=== PATIENT | female | born 1955 | race Caucasian/White ===

== ENCOUNTER 2022-09-29 06:22 | Observation (INO) | payer BC ==
[2022-09-24 13:36] LABS: Hematocrit 42.6 % (36.0-45.0); MCV 86.8 fL (80-100)
[2022-09-24 13:37] LABS: Absolute Lymphocytes (CBC) 1.4 K/uL (0.7-4.9); Lymphocytes % 26.7 % (15.3-44.8); MPV 8.3 fL (7.6-11.3)
[2022-09-24 13:37] LABS: Specific Gravity 1.009 (1.005-1.030); Urine Bilirubin NEGATIVE (Negative); Urine Blood Negative (Negative); Urine Clarity Clear (Clear); Urine Color Colorless (Yellow); Urine Glucose NEGATIVE (Negative); Urine Protein NEGATIVE (Negative); Urine Urobilinogen Normal (Normal); Urine pH 5.5 (5.0-7.0)
[2022-09-24 13:44] LABS: Protime INR 1.01
[2022-09-24 13:48] LABS: Potassium 3.7 mmol/L (3.5-5.1)
[2022-09-28 14:31] LABS: SARS-CoV-2 Antigen Rapid Res Negative (Negative)
[2022-09-29] MEDS ORDERED: Ringers Lactate 1,000 ML IV ONE ×3 (07:00→12:09)
[2022-09-29] MEDS ORDERED: SCOPOLAMINE HYDROBROMIDE PATCH TD ONE (07:00)
[2022-09-29] MEDS ORDERED: CEFAZOLIN SODIUM 2 GM/VIAL ONE (07:00)
[2022-09-29] MEDS ORDERED: FENTANYL CITR 250 MCG/5 ML ONE (07:03)
[2022-09-29] MEDS ORDERED: dexAMETHasone 10 MG/ML VIAL ONE (07:03)
[2022-09-29] MEDS ORDERED: MIDAZOLAM HCL 2 MG/2 ML INJ ONE (07:03)
[2022-09-29] MEDS ORDERED: KETAMINE HCL 500 MG/5 ML VIAL ONE (07:03)
[2022-09-29] MEDS ORDERED: propofoL 200 MG/20 ML VIAL IV ONE (07:03)
[2022-09-29] MEDS ORDERED: NS 0.9% VIAL 20 ML ONE (07:03)
[2022-09-29] MEDS ORDERED: ROCURONIUM 50 MG/5 ML VIAL IV ONE (07:03)
[2022-09-29] MEDS ORDERED: ONDANSETRON 4 MG/2 ML VIAL ONE (07:04)
[2022-09-29] MEDS ORDERED: LIDOCAINE 2% MPF 5 ML VIAL ONE (07:04)
[2022-09-29] MEDS ORDERED: CEFAZOLIN SODIUM 1 GM/VIAL ONE ×3 (07:23→13:21)
[2022-09-29] MEDS ORDERED: NA CHLORIDE 0.9% 100 ML ONE (07:24)
[2022-09-29] MEDS ORDERED: GLYCOPYRROLATE 0.2 MG/ML SYR ONE (08:28)
[2022-09-29] MEDS: VASOPRESSIN 20 UNIT/ML VIAL ONE ×2 (09:10→12:32)
[2022-09-29] MEDS ORDERED: EPHEDRINE SULF 50 MG/ML VIAL ONE (13:25)
[2022-09-29] MEDS ORDERED: FENTANYL CITR 100 MCG/2 ML ONE (13:40)
[2022-09-29] MEDS ORDERED: IBUPROFEN 200 MG TAB PO PRN (14:33)
[2022-09-29] MEDS ORDERED: ONDANSETRON 4 MG/2 ML VIAL IV PRN (14:33)
[2022-09-29] MEDS ORDERED: MORPHINE 2 MG/ML SYR IV PRN (14:33)
[2022-09-29] MEDS ORDERED: ACETAMINOPHEN 500 MG TAB PO PRN (14:33)
[2022-09-29] MEDS ORDERED: HYDROCODONE/APAP 5/325 MG TAB PO PRN (14:33)
--- NOTE | 2022-09-29 14:40 | P.BOP ---
Preoperative diagnosis: PMB, Stage 2 uterovaginal prolapse, RANDY Postoperative diagnosis: same, small bowel and large bowel adhesions, end ometriosis Primary procedure: TLH BSO, sacral colpopexy, posterior repair, perineorrhaphy Secondary procedure: lysis of bowel adhesions, TVT-O cystoscopy [employer] Consultant: Consuelo Arteaga Estimated blood loss: 50 Specimen: uterus tubes ovaries Findings: 0/0/-1/5/mod/7/0/0/-3, small bowel RLQ adhesions+sigmoid Anesthesia: General Complications: None Drain(s): Urinary catheter Implants: Upsylon, TVT-O Transferred to: Recovery Room Condition: Good
[2022-09-29] MEDS ORDERED: Ringers Lactate 1,000 ML IV SCH (15:00)
--- OUTSIDE RECORDS SUMMARY | 2022-09-29 15:17 | XMS REPORT | Continuity of Care Document ---
:1955 Author Organization [facility] t Address [address] [place] [address] Care Team Providers Name Role Phone YADIRA BARTHOLOMEW Primary Care Physician Unavailable [place] BARTHOLOMEW Attending Clinician Unavailable YADIRA BARTHOLOMEW Attending Clinician Unavailable Yadira Bartholomew Attending Clinician Doctor Unassigned, [place] Attending Clinician Unavailable Kendrick Hong Attending Clinician Unavailable Cornell Zavala DO Attending Clinician 1, [facility] Attending Clinician Unavailable Donnell Stewart MD Attending Clinician Jeremy Morin Attending Clinician YADIRA BARTHOLOMEW Admitting Clinician Unavailable Payers Payer Name Policy Type Policy Number Effective Date Expiration Date S [facility] - [id number] 2021 00:00:00 OUT OF STATE Problems Condition Condition Condition Status Onset Resolution Last Treating Co mments Source Name Details Category Date Date Treatment Clinician Date Adhesive Adhesive Disease Active Unive rs capsulitis capsulitis 02-27 it y of of left of left 00:00: [place] shoulder shoulder 00 Medica l Branch Allergies, Adverse Reactions, Alerts Allergy Allergy Status Severity Reaction(s) Onset Inactive Treating Comm ents Source Name Type Date Date Clinician No Known DA Active U 2020-08 [facility] Drug 2-16 Allergie 00:00: s 00 NO KNOWN Drug Active Univers ALLERGIE Class ity of S [facility] Social History Social Habit Start Date Stop Date Quantity Comments Source Exposure to Not sure University of SARS-CoV-2 [facility] (event) Branch Alcohol intake 2019-05-24 2019-05-24 Current University of 00:00:00 00:00:00 non-drinker of [facility] alcohol (finding) [place] Tobacco use and 2019-01-27 2019-01-27 Smokeless tobacco Un iversity of exposure 00:00:00 00:00:00 non-user [facility] Sex [birth year] Universit y of 00:00:00 00:00:00 [facility] Smoking Status Start Date Stop Date Source Never smoked tobacco [facility] Medications Ordered Filled Start Stop Current Ordering Indication Dosage Frequency Signature Comments Components Source Medication Medication Date Date Medication? Clinician (SIG) Name Name DICLOFENAC Yes [id number] TAKE 1 U nivers 75 mg EC 9-25 TABLET BY ity of tablet 00:00: MOUTH 00 TWICE A Medical DAY WITH Branch MEALS DICLOFENAC 2019-0 Yes [id number] TAKE 1 U nivers 75 mg EC 9-25 TABLET BY ity of tablet 00:00: MOUTH 00 TWICE A Medical DAY WITH Branch MEALS DICLOFENAC 2019-0 Yes [id number] TAKE 1 U nivers 75 mg EC 9-25 TABLET BY ity of tablet 00:00: MOUTH 00 TWICE A Medical DAY WITH Branch MEALS DICLOFENAC 2019-0 Yes [id number] TAKE 1 U nivers 75 mg EC 9-25 TABLET BY ity of tablet 00:00: MOUTH 00 TWICE A Medical DAY WITH Branch MEALS DICLOFENAC 2019-0 Yes [id number] TAKE 1 U nivers 75 mg EC 9-25 TABLET BY ity of tablet 00:00: MOUTH 00 TWICE A Medical DAY WITH Branch MEALS DICLOFENAC 2019-0 Yes [id number] TAKE 1 U nivers 75 mg EC 9-25 TABLET BY ity of tablet 00:00: MOUTH 00 TWICE A Medical DAY WITH Branch MEALS DICLOFENAC 2019-0 Yes [id number] TAKE 1 U nivers 75 mg EC 9-25 TABLET BY ity of tablet 00:00: MOUTH 00 TWICE A Medical DAY WITH Branch MEALS DICLOFENAC 2019-0 Yes [id number] TAKE 1 U nivers 75 mg EC 7-29 TABLET BY ity of tablet 00:00: MOUTH [place] 00 TWICE A Medical DAY WITH Branch MEALS DICLOFENAC 2019-0 Yes [id number] TAKE 1 U nivers 75 mg EC 7-29 TABLET BY ity of tablet 00:00: MOUTH 00 TWICE A Medical DAY WITH Branch MEALS DICLOFENAC 2019-0 Yes [id number] TAKE 1 U nivers 75 mg EC 7-29 TABLET BY ity of tablet 00:00: MOUTH 00 TWICE A Medical DAY WITH Branch MEALS DICLOFENAC 2019-0 Yes [id number] TAKE 1 U nivers 75 mg EC 7-29 TABLET BY ity of tablet 00:00: MOUTH 00 TWICE A Medical DAY WITH Branch MEALS DICLOFENAC 2019-0 Yes [id number] TAKE 1 U nivers 75 mg EC 7-29 TABLET BY ity of tablet 00:00: MOUTH 00 TWICE A Medical DAY WITH Branch MEALS DICLOFENAC 2019-0 Yes [id number] TAKE 1 U nivers 75 mg EC 7-29 TABLET BY ity of tablet 00:00: MOUTH 00 TWICE A Medical DAY WITH Branch MEALS DICLOFENAC 2019-0 Yes [id number] TAKE 1 U nivers 75 mg EC 7-29 TABLET BY ity of tablet 00:00: MOUTH 00 TWICE A Medical DAY WITH Branch MEALS DICLOFENAC 2019-0 Yes [id number] TAKE 1 U nivers 75 mg EC 7-29 TABLET BY ity of tablet 00:00: MOUTH 00 TWICE A Medical DAY WITH Branch MEALS DICLOFENAC 2019-0 Yes [id number] TAKE 1 U nivers 75 mg EC 7-29 TABLET BY ity of tablet 00:00: MOUTH 00 TWICE A Medical DAY WITH Branch MEALS losartan 2019-0 Yes 100mg Take 100 Univ ers potassium 6-17 mg by ity of (LOSARTAN 20:46: mouth. [place] ORAL) 00 Medical Branch losartan 2019-0 Yes 100mg Take 100 Univ ers potassium 6-17 mg by ity of (LOSARTAN 20:46: mouth. [place] ORAL) 00 Medical Branch losartan 2019-0 Yes 100mg Take 100 Univ ers potassium 6-17 mg by ity of (LOSARTAN 20:46: mouth. [place] ORAL) 00 Medical Branch losartan 2019-0 Yes 100mg Take 100 Univ ers potassium 6-17 mg by ity of (LOSARTAN 20:46: mouth. [place] ORAL) 00 Medical Branch losartan 2019-0 Yes 100mg Take 100 Univ ers potassium 6-17 mg by ity of (LOSARTAN 20:46: mouth. [place] ORAL) 00 Medical Branch losartan 2019-0 Yes 100mg Take 100 Univ ers potassium 6-17 mg by ity of (LOSARTAN 20:46: mouth. [place] ORAL) 00 Medical Branch losartan 2019-0 Yes 100mg Take 100 Univ ers potassium 6-17 mg by ity of (LOSARTAN 20:46: mouth. [place] ORAL) 00 Medical Branch losartan 2019-0 Yes 100mg Take 100 Univ ers potassium 6-17 mg by ity of (LOSARTAN 20:46: mouth. [place] ORAL) 00 Medical Branch losartan 2019-0 Yes 100mg Take 100 Univ ers potassium 6-17 mg by ity of (LOSARTAN 20:46: mouth. [place] ORAL) 00 Medical Branch losartan 2019-0 Yes 100mg Take 100 Univ ers potassium 6-17 mg by ity of (LOSARTAN 20:46: mouth. [place] ORAL) 00 Medical Branch losartan 2019-0 Yes 100mg Take 100 Univ ers potassium 6-17 mg by ity of (LOSARTAN 20:46: mouth. [place] ORAL) 00 Medical Branch losartan 2019-0 Yes 100mg Take 100 Univ ers potassium 6-17 mg by ity of (LOSARTAN 20:46: mouth. [place] ORAL) 00 Medical Branch losartan 2019-0 Yes 100mg Take 100 Univ ers potassium 6-17 mg by ity of (LOSARTAN 20:46: mouth. [place] ORAL) 00 Medical Branch losartan 2019-0 Yes 100mg Take 100 Univ ers potassium 6-17 mg by ity of (LOSARTAN 20:46: mouth. [place] ORAL) 00 Medical Branch losartan 2019-0 Yes 100mg Take 100 Univ ers potassium 6-17 mg by ity of (LOSARTAN 20:46: mouth. [place] ORAL) 00 Medical Branch losartan 2019-0 Yes 100mg Take 100 Univ ers potassium 6-17 mg by ity of (LOSARTAN 20:46: mouth. [place] ORAL) 00 Medical Branch losartan 2019-0 Yes 100mg Take 100 Univ ers potassium 6-17 mg by ity of (LOSARTAN 15:46: mouth. [place] ORAL) 00 Medical Branch losartan 2019-0 Yes 100mg Take 100 Univ ers potassium 6-17 mg by ity of (LOSARTAN 15:46: mouth. [place] ORAL) 00 Medical Branch losartan 2019-0 Yes 100mg Take 100 Univ ers potassium 6-17 mg by ity of (LOSARTAN 15:46: mouth. [place] ORAL) 00 Medical Branch acetaminoph 2018-0 Yes TAKE 1 Univ ers en-codeine 6-06 TABLET BY ity of 300-30 mg 00:00: MOUTH [place] tablet 00 EVERY 8 Medical HOURS Branch NEEDED FOR SEVERE LEFT SHOULDER PAIN metoprolol Yes 50mg Take 50 mg U nivers succinate 6-06 by mouth ity of XL 50 mg 24 [place]: [place] [facility] gabapentin Yes TAKE 1 Unive rs 300 mg 6-06 CAPSULE BY ity of capsule 00:00: MOUTH [place] 00 EVERYDAY Medical AT BEDTIME Branch acetaminoph Yes TAKE 1 Univ ers en-codeine 6-06 TABLET BY ity of 300-30 mg 00:00: MOUTH [place] tablet 00 EVERY 8 Medical HOURS Branch NEEDED FOR SEVERE LEFT SHOULDER PAIN metoprolol Yes 50mg Take 50 mg U nivers succinate 6-06 by mouth ity of XL 50 mg 24 00:00: [place]. [place] [facility] gabapentin Yes TAKE 1 Unive rs 300 mg 6-06 CAPSULE BY ity of capsule 00:00: MOUTH [place] 00 EVERYDAY Medical AT BEDTIME Branch acetaminoph Yes TAKE 1 Univ ers en-codeine 6-06 TABLET BY ity of 300-30 mg 00:00: MOUTH [place] tablet 00 EVERY 8 Medical HOURS Branch NEEDED FOR SEVERE LEFT SHOULDER PAIN metoprolol Yes 50mg Take 50 mg U nivers succinate 6-06 by mouth ity of XL 50 mg 24 00:00: [place]. [place] [facility] gabapentin Yes TAKE 1 Unive rs 300 mg 6-06 CAPSULE BY ity of capsule 00:00: MOUTH [place] 00 EVERYDAY Medical AT BEDTIME Branch acetaminoph Yes TAKE 1 Univ ers en-codeine 6-06 TABLET BY ity of 300-30 mg 00:00: MOUTH [place] tablet 00 EVERY 8 Medical HOURS Branch NEEDED FOR SEVERE LEFT SHOULDER PAIN metoprolol Yes 50mg Take 50 mg U nivers succinate 6-06 by mouth ity of XL 50 mg 24 00:00: [place]. [place] [facility] gabapentin Yes TAKE 1 Unive rs 300 mg 6-06 CAPSULE BY ity of capsule 00:00: MOUTH [place] 00 EVERYDAY Medical AT BEDTIME Branch acetaminoph Yes TAKE 1 Univ ers en-codeine 6-06 TABLET BY ity of 300-30 mg 00:00: MOUTH [place] tablet 00 EVERY 8 Medical HOURS Branch NEEDED FOR SEVERE LEFT SHOULDER PAIN metoprolol Yes 50mg Take 50 mg U nivers succinate 6-06 by mouth ity of XL 50 mg 24 00:00: [place]. [place] [facility] gabapentin Yes TAKE 1 Unive rs 300 mg 6-06 CAPSULE BY ity of capsule 00:00: MOUTH [place] 00 EVERYDAY Medical AT BEDTIME Branch acetaminoph Yes TAKE 1 Univ ers en-codeine 6-06 TABLET BY ity of 300-30 mg 00:00: MOUTH [place] tablet 00 EVERY 8 Medical HOURS Branch NEEDED FOR SEVERE LEFT SHOULDER PAIN metoprolol Yes 50mg Take 50 mg U nivers succinate 6-06 by mouth ity of XL 50 mg 24 00:00: [place]. [place] [facility] gabapentin Yes TAKE 1 Unive rs 300 mg 6-06 CAPSULE BY ity of capsule 00:00: MOUTH [place] 00 EVERYDAY Medical AT BEDTIME Branch acetaminoph Yes TAKE 1 Univ ers en-codeine 6-06 TABLET BY ity of 300-30 mg 00:00: MOUTH [place] tablet 00 EVERY 8 Medical HOURS Branch NEEDED FOR SEVERE LEFT SHOULDER PAIN metoprolol Yes 50mg Take 50 mg U nivers succinate 6-06 by mouth ity of XL 50 mg 24 00:00: [place]. [place] [facility] gabapentin Yes TAKE 1 Unive rs 300 mg 6-06 CAPSULE BY ity of capsule 00:00: MOUTH [place] 00 EVERYDAY Medical AT BEDTIME Branch acetaminoph Yes TAKE 1 Univ ers en-codeine 6-06 TABLET BY ity of 300-30 mg 00:00: MOUTH [place] tablet 00 EVERY 8 Medical HOURS Branch NEEDED FOR SEVERE LEFT SHOULDER PAIN metoprolol Yes 50mg Take 50 mg U nivers succinate 6-06 by mouth ity of XL 50 mg 24 00:00: [place]. [place] [facility] gabapentin Yes TAKE 1 Unive rs 300 mg 6-06 CAPSULE BY ity of capsule 00:00: MOUTH [place] 00 EVERYDAY Medical AT BEDTIME Branch acetaminoph Yes TAKE 1 Univ ers en-codeine 6-06 TABLET BY ity of 300-30 mg 00:00: MOUTH [place] tablet 00 EVERY 8 Medical HOURS Branch NEEDED FOR SEVERE LEFT SHOULDER PAIN metoprolol 2019 Yes 50mg Take 50 mg U nivers succinate 6-06 by mouth ity of XL 50 mg 24 00:00: [place]. [place] [facility] gabapentin Yes TAKE 1 Unive rs 300 mg 6-06 CAPSULE BY ity of capsule 00:00: MOUTH [place] 00 EVERYDAY Medical AT BEDTIME Branch acetaminoph Yes TAKE 1 Univ ers en-codeine 6-06 TABLET BY ity of 300-30 mg 00:00: MOUTH [place] tablet 00 EVERY 8 Medical HOURS Branch NEEDED FOR SEVERE LEFT SHOULDER PAIN metoprolol Yes 50mg Take 50 mg U nivers succinate 6-06 by mouth ity of XL 50 mg 24 00:00: [place]. [place] [facility] gabapentin Yes TAKE 1 Unive rs 300 mg 6-06 CAPSULE BY ity of capsule 00:00: MOUTH [place] 00 EVERYDAY Medical AT BEDTIME Branch acetaminoph Yes TAKE 1 Univ ers en-codeine 6-06 TABLET BY ity of 300-30 mg 00:00: MOUTH [place] tablet 00 EVERY 8 Medical HOURS Branch NEEDED FOR SEVERE LEFT SHOULDER PAIN metoprolol Yes 50mg Take 50 mg U nivers succinate 6-06 by mouth ity of XL 50 mg 24 00:00: [place]. [place] [facility] gabapentin Yes TAKE 1 Unive rs 300 mg 6-06 CAPSULE BY ity of capsule 00:00: MOUTH [place] 00 EVERYDAY Medical AT BEDTIME Branch acetaminoph 2018- Yes TAKE 1 Univ ers en-codeine 6-06 TABLET BY ity of 300-30 mg 00:00: MOUTH [place] tablet 00 EVERY 8 Medical HOURS Branch NEEDED FOR SEVERE LEFT SHOULDER PAIN acetaminoph Yes TAKE 1 Univ ers en-codeine 6-06 TABLET BY ity of 300-30 mg 00:00: MOUTH [place] tablet 00 EVERY 8 Medical HOURS Branch NEEDED FOR SEVERE LEFT SHOULDER PAIN metoprolol Yes 50mg Take 50 mg U nivers succinate 6-06 by mouth ity of XL 50 mg 24 00:00: [place]. [place] tablet 00 [facility] Branch gabapentin 2018- Yes TAKE 1 Unive rs 300 mg 6-06 CAPSULE BY ity of capsule 00:00: MOUTH [place] 00 EVERYDAY Medical AT BEDTIME Branch metoprolol Yes 50mg Take 50 mg U nivers succinate 6-06 by mouth ity of XL 50 mg 24 00:00: daily. [place] tablet 00 [facility] Branch gabapentin Yes TAKE 1 Unive rs 300 mg 6-06 CAPSULE BY ity of capsule 00:00: MOUTH [place] 00 EVERYDAY Medical AT BEDTIME Branch acetaminoph Yes TAKE 1 Univ ers en-codeine 6-06 TABLET BY ity of 300-30 mg 00:00: MOUTH [place] tablet 00 EVERY 8 Medical HOURS Branch NEEDED FOR SEVERE LEFT SHOULDER PAIN metoprolol Yes 50mg Take 50 mg U nivers succinate 6-06 by mouth ity of XL 50 mg 24 00:00: daily. [place] tablet 00 [facility] Branch gabapentin Yes TAKE 1 Unive rs 300 mg 6-06 CAPSULE BY ity of capsule 00:00: MOUTH [place] 00 EVERYDAY Medical AT BEDTIME Branch acetaminoph Yes TAKE 1 Univ ers en-codeine 6-06 TABLET BY ity of 300-30 mg 00:00: MOUTH [place] tablet 00 EVERY 8 Medical HOURS Branch NEEDED FOR SEVERE LEFT SHOULDER PAIN metoprolol Yes 50mg Take 50 mg U nivers succinate 6-06 by mouth ity of XL 50 mg 24 00:00: daily. [place] tablet 00 [facility] Branch gabapentin Yes TAKE 1 Unive rs 300 mg 6-06 CAPSULE BY ity of capsule 00:00: MOUTH [place] 00 EVERYDAY Medical AT BEDTIME Branch acetaminoph Yes TAKE 1 Univ ers en-codeine 6-06 TABLET BY ity of 300-30 mg 00:00: MOUTH [place] tablet 00 EVERY 8 Medical HOURS Branch NEEDED FOR SEVERE LEFT SHOULDER PAIN metoprolol Yes 50mg Take 50 mg U nivers succinate 6-06 by mouth ity of XL 50 mg 24 00:00: daily. [place] tablet 00 [facility] Branch gabapentin Yes TAKE 1 Unive rs 300 mg 6-06 CAPSULE BY ity of capsule 00:00: MOUTH [place] 00 EVERYDAY Medical AT BEDTIME Branch acetaminoph Yes TAKE 1 Univ ers en-codeine 6-06 TABLET BY ity of 300-30 mg 00:00: MOUTH [place] tablet 00 EVERY 8 Medical HOURS Branch NEEDED FOR SEVERE LEFT SHOULDER PAIN metoprolol Yes 50mg Take 50 mg U nivers succinate 6-06 by mouth ity of XL 50 mg 24 00:00: daily. [place] tablet 00 [facility] Branch gabapentin Yes TAKE 1 Unive rs 300 mg 6-06 CAPSULE BY ity of capsule 00:00: MOUTH [place] 00 EVERYDAY Medical AT BEDTIME Branch acetaminoph Yes TAKE 1 Univ ers en-codeine 6-06 TABLET BY ity of 300-30 mg 00:00: MOUTH [place] tablet 00 EVERY 8 Medical HOURS Branch NEEDED FOR SEVERE LEFT SHOULDER PAIN metoprolol Yes 50mg Take 50 mg U nivers succinate 6-06 by mouth ity of XL 50 mg 24 00:00: daily. [place] tablet 00 [facility] Branch gabapentin Yes TAKE 1 Unive rs 300 mg 6-06 CAPSULE BY ity of capsule 00:00: MOUTH [place] 00 EVERYDAY Medical AT BEDTIME Branch acetaminoph Yes TAKE 1 Univ ers en-codeine 6-06 TABLET BY ity of 300-30 mg 00:00: MOUTH [place] tablet 00 EVERY 8 Medical HOURS Branch NEEDED FOR SEVERE LEFT SHOULDER PAIN metoprolol Yes 50mg Take 50 mg U nivers succinate 6-06 by mouth ity of XL 50 mg 24 00:00: daily. [place] [facility] gabapentin Yes TAKE 1 Unive rs 300 mg 6-06 CAPSULE BY ity of capsule 00:00: MOUTH [place] 00 EVERYDAY Medical AT BEDTIME Branch diclofenac Yes [id number] 75mg Take 1 U nivers 75 mg EC 5-31 tablet by ity of tablet 00:00: mouth [place] (two) Medical times Branch daily with meals. diclofenac Yes [id number] 75mg Take 1 U nivers 75 mg EC 5-31 tablet by ity of tablet 00:00: mouth [place] (two) Medical times Branch daily with meals. diclofenac Yes [id number] 75mg Take 1 U nivers 75 mg EC 5-31 tablet by ity of tablet 00:00: mouth [place] (two) Medical times Branch daily with meals. diclofenac 2019- No [id number] 75mg Take 1 Univers 75 mg EC 5-31 07-24 tablet by ity o f tablet 00:00: 00:00 mouth 2 [place] 00 :00 (two) Medical times Branch daily with meals. lovastatin 2018- Yes 40mg Take 40 mg U nivers 40 mg 5-20 by mouth ity of tablet 00:00: daily. [place] [facility] lovastatin 2019-0 Yes 40mg Take 40 mg U nivers 40 mg 5-20 by mouth ity of tablet 00:00: daily. [place] [facility] lovastatin 2019-0 Yes 40mg Take 40 mg U nivers 40 mg 5-20 by mouth ity of tablet 00:00: daily. [place] [facility] lovastatin 2019-0 Yes 40mg Take 40 mg U nivers 40 mg 5-20 by mouth ity of tablet 00:00: daily. [place] [facility] lovastatin 2019-0 Yes 40mg Take 40 mg U nivers 40 mg 5-20 by mouth ity of tablet 00:00: daily. [place] [facility] lovastatin 2019-0 Yes 40mg Take 40 mg U nivers 40 mg 5-20 by mouth ity of tablet 00:00: daily. [place] [facility] lovastatin 2019-0 Yes 40mg Take 40 mg U nivers 40 mg 5-20 by mouth ity of tablet 00:00: daily. [place] [facility] lovastatin 2019-0 Yes 40mg Take 40 mg U nivers 40 mg 5-20 by mouth ity of tablet 00:00: daily. [place] [facility] lovastatin 2019-0 Yes 40mg Take 40 mg U nivers 40 mg 5-20 by mouth ity of tablet 00:00: daily. [place] [facility] lovastatin 2019-0 Yes 40mg Take 40 mg U nivers 40 mg 5-20 by mouth ity of tablet 00:00: daily. [place] [facility] lovastatin 2019-0 Yes 40mg Take 40 mg U nivers 40 mg 5-20 by mouth ity of tablet 00:00: daily. [place] [facility] lovastatin 2019-0 Yes 40mg Take 40 mg U nivers 40 mg 5-20 by mouth ity of tablet 00:00: daily. [address] lovastatin 2019-0 Yes 40mg Take 40 mg U nivers 40 mg 5-20 by mouth ity of tablet 00:00: daily. [address] lovastatin 2019-0 Yes 40mg Take 40 mg U nivers 40 mg 5-20 by mouth ity of tablet 00:00: daily. [address] lovastatin 2019-0 Yes 40mg Take 40 mg U nivers 40 mg 5-20 by mouth ity of tablet 00:00: daily. [place] [facility] lovastatin 2019-0 Yes 40mg Take 40 mg U nivers 40 mg 5-20 by mouth ity of tablet 00:00: daily. [place] [facility] lovastatin 2019-0 Yes 40mg Take 40 mg U nivers 40 mg 5-20 by mouth ity of tablet 00:00: daily. [place] [facility] lovastatin 2019-0 Yes 40mg Take 40 mg U nivers 40 mg 5-20 by mouth ity of tablet 00:00: daily. [place] [facility] lovastatin 2019-0 Yes 40mg Take 40 mg U nivers 40 mg 5-20 by mouth ity of tablet 00:00: daily. [place] [facility] levothyroxi 2019-0 Yes 50ug Take 50 Uni vers ne 50 mcg 4-12 mcg by ity of tablet 00:00: mouth. [place] [facility] levothyroxi 2018-0 Yes 50ug Take 50 Uni vers ne 50 mcg 4-12 mcg by ity of tablet 00:00: mouth. [place] [facility] levothyroxi 2018-0 Yes 50ug Take 50 Uni vers ne 50 mcg 4-12 mcg by ity of tablet 00:00: mouth. [place] [facility] levothyroxi 2019-0 Yes 50ug Take 50 Uni vers ne 50 mcg 4-12 mcg by ity of tablet 00:00: mouth. [place] [facility] levothyroxi 2018-0 Yes 50ug Take 50 Uni vers ne 50 mcg 4-12 mcg by ity of tablet 00:00: mouth. [place] [facility] levothyroxi 2019-0 Yes 50ug Take 50 Uni vers ne 50 mcg 4-12 mcg by ity of tablet 00:00: mouth. [place] [facility] levothyroxi 2019-0 Yes 50ug Take 50 Uni vers ne 50 mcg 4-12 mcg by ity of tablet 00:00: mouth. [place] [facility] levothyroxi 2019-0 Yes 50ug Take 50 Uni vers ne 50 mcg 4-12 mcg by ity of tablet 00:00: mouth. [place] [facility] levothyroxi 2019-0 Yes 50ug Take 50 Uni vers ne 50 mcg 4-12 mcg by ity of tablet 00:00: mouth. [place] [facility] levothyroxi 2018-0 Yes 50ug Take 50 Uni vers ne 50 mcg 4-12 mcg by ity of tablet 00:00: mouth. [place] [facility] levothyroxi 2019-0 Yes 50ug Take 50 Uni vers ne 50 mcg 4-12 mcg by ity of tablet 00:00: mouth. [place] [facility] levothyroxi 0 Yes 50ug Take 50 Uni vers ne 50 mcg 4-12 mcg by ity of tablet 00:00: mouth. [address] levothyroxi 2019-0 Yes 50ug Take 50 Uni vers ne 50 mcg 4-12 mcg by ity of tablet 00:00: mouth. [place] [facility] levothyroxi 0 Yes 50ug Take 50 Uni vers ne 50 mcg 4-12 mcg by ity of tablet 00:00: mouth. [address] levothyroxi 0 Yes 50ug Take 50 Uni vers ne 50 mcg 4-12 mcg by ity of tablet 00:00: mouth. [place] [facility] levothyroxi 0 Yes 50ug Take 50 Uni vers ne 50 mcg 4-12 mcg by ity of tablet 00:00: mouth. [place] [facility] levothyroxi 0 Yes 50ug Take 50 Uni vers ne 50 mcg 4-12 mcg by ity of tablet 00:00: mouth. [place] [facility] levothyroxi 2019-0 Yes 50ug Take 50 Uni vers ne 50 mcg 4-12 mcg by ity of tablet 00:00: mouth. [address] levothyroxi 0 Yes 50ug Take 50 Uni vers ne 50 mcg 4-12 mcg by ity of tablet 00:00: mouth. [address] Vital Signs Vital Name Observation Time Observation Value Comments Source Systolic blood 2019-05-17 18:07:00 129 mm[Hg] Univer sity of pressure [facility] Diastolic blood 2019-05-17 18:07:00 81 mm[Hg[facility] Body height 2019-05-17 18:07:00 170.2 cm [facility] Body weight 2019-05-17 18:07:00 65.318 kg [facility] BMI 2019-05-17 18:07:00 22.55 kg/m2 [facility] Systolic blood 2019-04-12 16:02:00 132 mm[Hg] Univer sity of pressure [place] [facility] Diastolic blood 2019-04-12 16:02:00 77 mm[Hg] Unive rsity of pressure [place] [facility] Body height 2019-04-12 16:02:00 170.2 cm [facility] [place] [facility] Body weight 2019-04-12 16:02:00 65.318 kg [facility] [place] [facility] BMI 2019-04-12 16:02:00 22.55 kg/m2 [facility] [place] [facility] Systolic blood 2019-03-30 14:25:00 127 mm[Hg] Univer sity of pressure [place] [facility] Diastolic blood 2019-03-30 14:25:00 73 mm[Hg] Unive rsity of [facility] Heart rate 2019-03-30 14:25:00 61 /min Universi ty [facility] Respiratory rate 2019-03-30 14:25:00 18 /min Univ ersity of [place] [facility] Body height 2019-03-30 14:25:00 170.2 cm [facility] [place] [facility] Body weight 2019-03-30 14:25:00 65.318 kg [facility] [place] [facility] BMI 2019-03-30 14:25:00 22.55 kg/m2 Universi ty [facility] Procedures Procedure Date / Time Performing Clinician Source Performed US RETROPERITONEAL 2022-03-31 21:12:10 Requisition, Paper [facility] COMPLETE Medical Branch ASSIGNMENT OF BENEFITS 2022-03-25 19:29:45 Doctor Unassigned, Un [facility] BI SCREENING TOMOSYNTHESIS 2021-03-05 18:43:13 Requisition, Nilo gray [facility] BILATERAL Medical Branch CONSENT/REFUSAL FOR 2021-03-05 18:11:20 Doctor Unassigned, [facility] DIAGNOSIS AND TREATMENT [facility] [place] ASSIGNMENT OF BENEFITS 2021-03-05 18:11:01 Doctor Unassigned, [facility] US PELVIS COMPLETE WITH 2020-03-01 20:17:49 Requisition, Paper U [facility] TRANSVAGINAL Medical Branch BI SCREENING TOMOSYNTHESIS 2020-03-01 19:40:00 Requisition, Nilo gray [facility] BILATERAL Medical Branch NOTICE OF PRIVACY 2020-03-01 19:00:07 Doctor Unassigned, [facility] CONSENT/REFUSAL FOR 2020-03-01 18:59:42 Doctor Patrice, [facility] DIAGNOSIS AND TREATMENT [facility] ASSIGNMENT OF BENEFITS 2020-03-01 18:59:22 [facility] ASSIGNMENT OF BENEFITS 2019-05-17 19:09:23 Doctor Unassnoemí, [facility] REFERRAL- REQUEST/RESPONSE 2019-03-22 05:01:00 Doctor Patrice , [facility] NON [facility] 2019-03-15 05:01:00 Doctor Patrice, [facility] DOCUMENTATION [facility] Encounters Start End Encounter Admission Attending Care Care Encounter Source Date/Time Date/Time Type Type Clinicians Facility Department ID 2022-07-09 Outpatient BAR[facility]OMEW [facility] [id number] Common 14:39:03 [place]GLE [id number] [facility] 2022-03-31 2022-03-31 [facility] [id number] Univers 15:35:58 23:59:[address] [facility] 2022-03-31 2022-03-31 [facility] 1.2.840.114 [id number] Univers 15:30:00 23:59:00 Encounter Yadira MARTINROMINA [id number] [facility] [id number] [facility] [id number] [facility] [address] 2022-03-25 2022-03-25 [facility] [id number] Univers 14:36:45 23:59:[address] [facility] 2022-03-25 2022-03-25 [facility] 1.2.840.114 [id number] Univers 14:36:45 23:59:00 Encounter Yadira BURNETTE [id number] [facility] [id number] [facility] [id number] [facility] [address] 2022-03-25 2022-03-25 Orders Doctor MCCORMICK 1.2.840.114 [id number] Univers 00:00:00 00:00:00 Only Unassigned, DDII [id number] ity of [place] [facility] [id number] Geraldo as [id number] [facility] [address] 2021-08-15 2021-08-15 Outpatient Elective Gely, [facility] [id number] [facility] 05:58:00 09:55:00 Kendrick 08 2021-08-15 2021-08-15 Outpatient [facility] [id number] [facility] 05:58:00 05:58:00 08 2021-03-05 2021-03-05 [facility] 1.2.840.114 [id number] Univers 13:20:00 23:59:00 Encounter Yadira Burnette [id number] [place] [id number] [facility] [address] 2021-03-05 2021-03-05 [facility] [id number] Univers 00:00:00 00:00:00 YADIRA ity of [facility] 2020-11-19 2020-11-19 Patient [facility] 1.2.840.114 [id number] Univers 00:00:00 00:00:00 Outreach [facility] [id number] i ty of [facility] [place]2.7.2.[place] [id number] Oh dical [address] 2020-03-01 2020-03-01 [facility] 1.2.840.114 [id number] Univers 13:57:00 13:57:00 Encounter Yadira Burnette [id number] it[place] of [place]2.[place] [id number] [facility] [address] 2020-03-01 2020-03-01 [facility] 1.2.840.114 [id number] Univers 13:57:00 13:57:00 Encounter Yadira Burnette [id number] ity of [place].2.[place] [id number] [facility] [address] 2020-03-01 2020-03-01 Outpatient [facility]OL[facility], [facility] [id number] Univers 00:00:00 00:00:00 YADIRA robertson of [facility] 2019-05-17 2019-05-17 [employer] 1, Adc Lab [facility] 1.2.840.114 [id number] [facility] 14:08:36 14:23:36 Visit Donnell Stewart [place] [id number] it[place]7.2.686 [place] [facility] [id number] [facility] [address] 2019-05-17 2019-05-17 [facility] [id number] Univers 12:59:35 13:27:01 Visit Donnell Szymanski [facility] [id number] it y of Surgical 4.2.7.2.686 Geraldo as Specialti [id number] Oh dical es 198 [facility] 2019-05-17 2019-05-17 Orders Doctor JACE 1.2.840.114 [id number] Univers 00:00:00 00:00:00 Only Unassigned, DIDI 350.1.13.10 [place] [facility] 4.2.7.2.686 Geraldo as [id number] [facility] [address] 2019-04-12 2019-04-12 [facility] 1.2.840.114 [id number] Univers 11:01:36 11:25:40 Visit Jeremy Wheeler [facility] [id number] it y of Surgical 4.2.7.2.686 [place]do as Specialti [id number] Oh dical es 198 [facility] 2019-03-30 2019-03-30 [facility] [id number] Univers 09:23:17 09:49:28 Visit Donnell Szymanski Health [id number] it y of Surgical 4.2.7.2.686 [place] as Specialti [phone] Oh dical es 198 [facility] 2019-03-22 2019-03-22 Orders Doctor JACE 1.2.840.114 [id number] Univers 00:00:00 00:00:00 Only Unassigned, DIDI [id number] [place] [facility] 4.2.7.2.686 Geraldo as [id number] [facility] [address] 2019-03-22 2019-03-22 Refill Pat [facility] [id number] Univers 00:00:00 00:00:00 Donnell Szymanski Health [id number] it y of Surgical 4.2.7.2.686 [place] as Specialti [id number] Me dical es 198 [facility] 2019-03-15 2019-03-15 [facility] OMERO Stewart 1.2.840.114 [id number] Univers 09:38:11 23:59:00 Encounter Donnell LOU [id number] [place] [id number] [facility] [address] 2019-03-15 2019-03-15 Orders Doctor JACE 1.2.840.114 [id number] Univers 00:00:00 00:00:00 Only Unassigned, DIDI [id number] it[place] of [place] [facility] [id number] Geraldo as [phone] [address] Results Test Description Test Time Test Comments Results Result Comments Source Partial Thromboplastin Time 2021-08-15 06:47:00 Test Item Value Reference Range Interpretation Comme nts Partial Thromboplastin Time (test 25.8 Seconds 23.9-32.8 N *Note New Reference Range code = PTT) Complete Blood Count w/o [id number] 06:47:00 Test Item Value Reference Range Interpretation Comments White Blood Count (test code = 6.7 x10 3/uL 4.4-10.5 N WBCT) Red Blood Count (test code = 4.41 x10 6/uL 3.75-5.20 N RBC) Hemoglobin (test code = HGBT) 12.8 g/dL 12.2-14.8 N Hematocrit (test code = HCTT) 40.0 % 36.5-44.4 N Mean Corpuscular Volume (test 90.70 fL 80.00-100.00 N code = MCV) Mean Corpuscular Hemoglobin 29.0 pg 27.0-32.5 N (test code = MCH) Mean Corpuscular HGB Conc 32.00 g/dL 32.00-37.50 N (test code = MCHC) RDW Coefficient of Variation 13.7 % 11.5-14.5 N (test code = RDWCV) Platelet Count (test code = 232.0 x10 3/uL 140.0-440.0 N PLTT) Mean Platelet Volume (test 10.4 fL code = MPV) nRBC Abs (test code = NRBCA) 0 nRBC Pct (test code = NRBCP) 0 % Comprehensive Metabolic [id number] 06:47:00 Test Item Value Reference Range Interpretation Comments SODIUM (test code = NA) 144.0 mmol/L 136.0-145.0 N Potassium,K (test code = K) 3.7 mmol/L 3.0-5.1 N Chloride (test code = CL) 107 mmol/L 98-107 N Carbon Dioxide (test code = CO2) 28 mmol/L 20-31 N Anion Gap (test code = GAP) 9 mmol/L 5-15 N Blood Urea Nitrogen (test code = 16 mg/dL 9-23 N BUN) Creatinine (test code = CREATT) 1.06 mg/dL 0.55-1.02 H Creatinine Clr Calc Pharmacy 53.38 mL/min (test code = CRCLPHA) Estimated GFR ( Amisha > 60 mL/min/1.73m2 (test code = EGFRAA) Estimated GFR (Non Afr Amisha 55 mL/min/1.73m2 (test code = EGFRNAA) BUN/Creatinine Ratio (test code 15 ratio 10-20 N = BCRATIO) Glucose (test code = GLU) 107 mg/dL 74-106 H Osmolality,Calculated (test code 298.7 = OSMOC) Calcium (test code = CA) 9.2 mg/dL 8.3-10.6 N Bilirubin,Total (test code = 0.4 mg/dL 0.2-1.1 N BILIT) Aspartate Amino Transferase 27 U/L 0-34 N (test code = AST) Alanine Aminotransferase (test 18 U/L 10-49 N code = ALT) Total Protein (test code = TP) 7.4 g/dL 5.7-8.2 N Albumin Level (test code = ALB) 4.6 g/dL 3.2-4.8 N Globulin (test code = GLOB) 2.8 mg/dL 2.3-3.5 N Albumin/Globulin Ratio (test 1.6 ratio 0.8-2.0 N code = AGRATIO) Alkaline Phosphatase (test code 102 U/L 46-116 N = ALP) Lipid [id number] 06:47:00 Test Item Value Reference Range Interpretation Comments Triglycerides (test code 125 mg/dL 9-200 N = TRIG) Cholesterol (test code = 185 mg/dL 0-200 N CHOL) LDL 90 mg/dL 0-130 N LDL (mg/dL)Opti mal Cholesterol,Calculated <100N ear Optimal (test code = LDLC) 100-129Bo rderline High 130-159Hig h 160-189Very Hig h >=190 VLDL CHOLESTEROL (test 25 mg/dL code = VLDL) HDL Cholesterol (test 70 mg/dL 50-60 H code = HDL) LDL/HDL Ratio (test code 1 = LDLHDL) Chol/HDL Ratio (test code 2.6 ratio 0.0-4.4 N = CHLHDL) Prothrombin Time [id number] 06:47:00 Test Item Value Reference Range Interpretation Comments Prothrombin Time 10.8 Seconds 9.3-12.1 N *Note New R eference (test code = PT) Range INR (test code = 1.0 ratio 0.9-1.2 N Reference I nterval is INR) for non-anticoagula rene patients.Sugges rene INR Therapeutic Range for Vitamin K antogonistthera py:LEV ELS OFTHERAPY INDICATIONS TAR GET INR RANGEStanda rd Dose Venous Thrombosis, 2.0 - 3.0 Atrial Fibrilla tion, Pulmonary Embolism.High D ose Valvular Heart Disease, 2.5 - 3.5 Mechanical Hear t, Intracardiac Thrombosis.*Not e New Reference Range BI SCREENING TOMOSYNTHESIS [id number] 22:41:28Examination:BI SCREENING TOMOSYNTHESIS BILATERAL History:Patient is 65 year old and is seen for: ?Enc ounter for screening mammogram for breast cancer. Computer-aided detection (CAD) utilized. Comparisons: 03/01/2020 BI SCREENING TOMOSYNTHESIS BILATERAL, 12/21/2018 BI SCREENING TOMOSYNTHESIS BILATERAL,and 12/15/2017 BI SCREENING TOMOSYNTHESIS BILATERAL Findings:The breasts have scattered areas of fibr oglandular density. There is no evidence of suspicious masses, calcifications, or other abnormal findings. Impression:No mammographic evidence of malignancy. Recommendation:Annual mammographic follow-up BI-RADS Category: Both 1 - Negative [facility] WITH [id number] 23:24:19 1. ?Minimal nonuniformity of the endometrium where it is focally expandedto up to 2.5 mm in thickness, remainder being 1 mm in thickness.Nonspecific and could relate to presence of small amount of fluid or tinypolyps. May be correlated with patient symptoms. Follow-up imaging may beobtained as clinically indicated. 2. ?Unremarkable bilateral ovaries. Preliminary Report Dictated by Resident: Flo Razo I, Dianne Garcia MD., have reviewed this study and agree with the abovereport.EXAM: US PELVIS COMPLETE WITH TRANSVAGINAL HISTORY: 64 years -old Female with suspected Polyp of cervix . TECHNIQUE: Transabdominal and transvaginal ultrasound imaging of the pelviswas performed including color Doppler evaluation. [place] Worker imageswere obtained for the record. COMPARISON: None FINDINGS:Uterus: Retroverted, retroflexedSize: 7.4 x 2.9 x 4.3 cmMyometrium: HomogenousMasses: None.Cervix: UnremarkableEndometrial thickness: 0.1Endometrium: Minimal nonuniformity of the endometrium. The endometriummeasures approximately 1 mm in thickness in most locations but in a couplesmall areas is expanded up to about 2.5 mm in thickness where hypoechoicappearance is seen between the brightly echogenic endometrial surfaces. Right Adnexa:Ovary size: 1.6 x 0.9 x 1.1 cm, (0.9 mL).Ovary appearance: Unremarkable. Left Adnexa:Ovary size: 2.9 x 1.3 x 1.5 cm, (3 mL).Ovary appearance: Small subcentimeter 0.6 cm anechoic cyst. Cul-de-sac: No free fluid. [facility], Radiant Results Inft User - 03/01/2020 6:25 PM CDTEXAM: US PELVIS COMPLETE WITH TRANSVAGINALHISTORY: 64 years -old Female with suspected Polyp of cervix . TECHNIQUE: Transabdominal and transvaginal ultrasound imaging of the pelviswas performed including color Doppler evaluation. [place] Worker imageswere obtained for the record.COMPARISON: NoneFINDINGS:Uterus: Retroverted, retroflexedSize: 7.4 x 2.9 x 4.3 cmMyometrium: HomogenousMasses: None.Cervix: UnremarkableEndometrial thickness: 0.1Endometrium: Minimal nonuniformity of the endometrium. Theendometriummeasures approximately 1 mm in thickness in most locations but in a couplesmall areas is expanded up to about 2.5 mm in thickness where hypoechoicappearance is seen between the brightly echogenic endometrial surfaces. Right Adnexa:Ovary size: 1.6 x 0.9 x 1.1 cm, (0.9 mL).Ovary appearance: Unremarkable.Left Adnexa:Ovary size: 2.9 x 1.3 x 1.5 cm, (3 mL).Ovary appearance: Small subcentimeter 0.6 cm anechoic cyst.Cul-de-sac: No free fluid. IMPRESSION1. Minimal nonuniformity of the endometriumwhere it is focally expandedto up to 2.5 mm in thickness, remainder being 1 mm in thickness.Nonspecific and could relate to presence of small amount of fluid or tinypolyps. May be correlated with patient symptoms. Follow-up imaging may beobtained as clinically indicated.2. Unremarkable bilateral ovaries.Preliminary Report Dictated by Resident: Dianne Tyson MD., have reviewed this study and agree with the abovereport. [facility] CenterBI [facility]CREENING TOMOSYNTHESIS [id number] 21:37:40Examination:BI SCREENING TOMOSYNTHESIS BILATERAL History:Patient is 64 year old and is seen for: ?Screening mammogram. Computer-aided detection (CAD) utilized. Comparisons: 12/21/2018 BI SCREENING TOMOSYNTHESIS BILATERAL and 12/15/2017 BI SCREENING TOMOSYNTHESIS BILATERAL Findings:The breasts have scat tered areas of fibroglandular density. There is no evidence of suspicious masses, calcifications, orother abnormal findings. Impression:No mammographic evidence of malignancy. Recommendation:Annual mammographic follow-up BI-RADS Category: Both [facility]
[2022-09-29 15:19] VITALS: O2SAT 99
[2022-09-29 16:43] VITALS: BMI 26.3
[2022-09-29] MEDS ORDERED: ATORVASTATIN 10 MG TAB PO SCH (21:00)
[2022-09-29] MEDS ORDERED: HOME MED 1 EA UNK (Lovastatin [Altoprev] 40 MG Tab.Er.24h) PO SCH (21:00)
[2022-09-30] MEDS ORDERED: LEVOTHYROXINE SOD 0.075 MG TAB PO SCH (06:00)
[2022-09-30 06:48] LABS: Absolute Lymphocytes (CBC) 1.4 K/uL (0.7-4.9); Hematocrit 35.5 % (36.0-45.0); MCV 88.1 fL (80-100); MPV 8.8 fL (7.6-11.3); RBC Red Blood Cell Count 4.03 M/uL (3.86-4.86)
[2022-09-30 07:47] VITALS: BP 118/56; TEMP 99.7
[2022-09-30] MEDS ORDERED: METOPROLOL XL 50 MG TAB PO SCH (09:00)
[2022-09-30] MEDS ORDERED: MONTELUKAST 10 MG TAB PO SCH (09:00)
[2022-09-30] MEDS ORDERED: ESCITALOPRAM 20 MG TAB PO SCH (09:00)
[2022-09-30] MEDS ORDERED: HOME MED 1 EA UNK (Losartan Potassium [Cozaar] 100 MG Tablet) PO SCH (09:00)
[2022-09-30] MEDS ORDERED: LOSARTAN POTASSIUM 50 MG TABLET PO SCH (09:00)
[2022-09-30] MEDS ORDERED: HOME MED 1 EA UNK (Escitalopram Oxalate [Lexapro] 5 MG Tablet) PO SCH (09:00)
[2022-09-30] MEDS ORDERED: AMLODIPINE 5 MG TAB PO SCH (09:00)
== END 2022-09-30 09:30 | disposition home or self-care (01) ==
LOC: OR 06:22 → 2ND-WC 15:11
PROVIDERS: ADMIT Obstetrics & Gynecology; ATTEND Obstetrics & Gynecology
PROC: 0UT24ZZ Resection of Bilateral Ovaries, Percutaneous Endoscopic Approach (ICD-10-PCS; 2022-09-29)
PROC: 0UT74ZZ Resection of Bilateral Fallopian Tubes, Percutaneous Endoscopic Approach (ICD-10-PCS; 2022-09-29)
PROC: 0USG4ZZ Reposition Vagina, Percutaneous Endoscopic Approach (ICD-10-PCS; 2022-09-29)
PROC: 0JQC0ZZ Repair Pelvic Region Subcutaneous Tissue and Fascia, Open Approach (ICD-10-PCS; 2022-09-29)
PROC: 0TSD0ZZ Reposition Urethra, Open Approach (ICD-10-PCS; 2022-09-29)
PROC: 0UT94ZZ Resection of Uterus, Percutaneous Endoscopic Approach (ICD-10-PCS; principal; 2022-09-29 07:30)
DX: N81.2 Incomplete uterovaginal prolapse (principal); N39.3 Stress incontinence (female) (male); E03.9 Hypothyroidism, unspecified; E78.00 Pure hypercholesterolemia, unspecified; R00.9 Unspecified abnormalities of heart beat; K66.0 Peritoneal adhesions (postprocedural) (postinfection); N95.0 Postmenopausal bleeding; Z20.822 Contact with and (suspected) exposure to COVID-19
CPT/HCPCS: 58571; 57282; 57250; 57288; 85025 ×2; 80048; 36415 ×3; 86900; 86850; 85610; 86901; 88307; 85730; 81003; 87811; J2704; J2001; J2250; J3010 ×2; J1100; J2270; A4216; J7120 ×4; J2405; J0690 ×3; G0378; G0379

== ENCOUNTER 2024-02-16 23:56 | Emergency (ER) | payer OTHER ==
--- OUTSIDE RECORDS SUMMARY | 2024-02-17 00:03 | XMS REPORT | Continuity of Care Document ---
Author Name Unknown Address [address] [place] [address] [facility] Address [address] [place] [address] Care Team Providers Care Gypsum Calciner Name Role Phone YADIRA BARTHOLOMEW Primary Care Physician ANGLE Wood Attending Clinician Unavailable HILLARY_GCBZW_Dg_S Attending Clinician UnavailMEY Johnson Attending Clinician Unavailable YADIRA BARTHOLOMEW Attending Clinician Unavailable Yadira Bartholomew Attending Clinician [phone] Doctor Unassigned, [place] Attending Clinician U Mey Todd Attending Clinician Unavailable Cornell Zavala DO Attending Clinician [phone], [facility] Attending Clinician Unavailable Donnell Stewart MD Attending Clinician [phone] Jeremy Morin Attending Clinician [phone] HILLARY_GCBZW_Dg_S Admitting Clinician YADIRA Wood Admitting Clinician Unavailable Payers Payer Name Policy Type Policy Number Effective Date Expirati on Date Source GROUP \T\ PENSION ADMINISTRATORS (PPO) [id number] 1989 00:00:00 [place] [id number] 2022 00:00:00 2023 00:00:00 [place] [id number] 2021 00:00:00 Problems Condition Name Condition Details Condition Category Status Onset Date Resolution Date Last Treatment Date Treating Clinician Comments Source Postmenopa usal osteopenia Postmenopa usal Osteopenia Problem Active 10-20 00:00: 00 [facility] Prolapse of female genital organs Prolapse of Female Genital Organs Problem Active 09-19 00:00: 00 [facility] Overactive bladder Overactive Bladder Problem Active 09-19 00:00: 00 [facility] Hypothyroi dism Hypothyroi dism Problem Active 2022-08 00:00: 00 [facility] Hyperchole sterolemia Hyperchole sterolemia Problem Active 2022-08 00:00: 00 [facility] Anxiety Anxiety Problem Active 2022-08 00:00: 00 [facility] Hypertensi ve disorder Hypertensi ve Disorder Problem Active 2022-08 00:00: 00 [facility] Essential hypertensi on Essential Hypertensi on Problem Active 09-21 00:00: 00 [facility] Incomplete uterovagin al prolapse Incomplete Uterovagin al Prolapse Problem Active 09-21 00:00: 00 [facility] Genuine stress incontinen ce Genuine Stress Incontinen ce Problem Active 09-21 00:00: 00 [facility] Postmenopa usal bleeding Postmenopa usal Bleeding Problem Active 09-21 00:00: 00 [facility] Cardiac arrhythmia Cardiac Arrhythmia Problem Active 2020-08 0-02 00:00: 00 [facility] Polyp of corpus uteri Polyp of Corpus Uteri Problem Active 8- 00:00: 00 [facility] Endometria l hyperplasi a Endometria l Hyperplasi a Problem Active 8- 00:00: 00 [facility] Atrophic vaginitis Atrophic Vaginitis Problem Active 8-11 00:00: 00 [facility] Polyp of cervix Polyp of Cervix Problem Active 8- 00:00: 00 [facility] Endometrio sis (clinical) Endometrio sis (Clinical) Problem Active 03-04 00:00: 00 [facility] Adhesive capsulitis of left shoulder Adhesive capsulitis of left shoulder Disease Active 02-27 00:00: 00 [facility] Allergies, Adverse Reactions, Alerts Allergy Name Allergy Type Status Severity Reaction(s) Onset Date Inactive Date Treating Clinician Comments Source No Known Drug Allergie s DA Active U 2020-08 2-16 00:00: 00 SJm NO KNOWN ALLERGIE S Drug Class Active [facility] Social History Social Habit Start Date Stop Date Quantity Comments Source Exposure to SARS-CoV-2 (event) Not sure [facility] Alcohol intake 2019-05-24 00:00:00 2019-05-24 00:00:00 Current non-drinker of alcohol (finding) [facility] Tobacco use and exposure 2019-01-27 00:00:00 2019-01-27 00:00:00 Smokeless tobacco non-user [facility] Sex Assigned At 1955 00:00:00 1955 00:00:00 [facility] Smoking Status Start Date Stop Date Source Never Smoker [facility] Medications Ordered Medication Name Filled Medication Name Start Date Stop Date Current Medication? Ordering Clinician Indication Dosage Frequency Signature (SIG) Comments Components Source DICLOFENAC 75 mg EC tablet 05-24 00:00: 00 Yes [id number] TAKE 1 TABLET BY MOUTH TWICE A DAY WITH MEALS [facility] DICLOFENAC 75 mg EC tablet 03-27 00:00: 00 Yes [id number] TAKE 1 TABLET BY MOUTH TWICE A DAY WITH MEALS [facility] losartan potassium (LOSARTAN ORAL) 02-13 20:46: 00 Yes 100mg Take [address] [facility] losartan potassium (LOSARTAN ORAL) 02-13 15:46: 00 Yes 100mg Take [address] [facility] acetaminoph en-codeine 300-30 mg tablet 02-02 00:00: 00 Yes TAKE 1 TABLET BY MOUTH EVERY 8 HOURS NEEDED FOR SEVERE LEFT SHOULDER PAIN [facility] gabapentin 300 mg capsule 02-02 00:00: 00 Yes TAKE 1 CAPSULE BY MOUTH EVERYDAY AT BEDTIME [facility] diclofenac 75 mg EC tablet 01-27 00:00: 00 03-22 00:00 :00 No [id number] 75mg Take 1 tablet by mouth 2 (two) times daily with meals. [facility] levothyroxi ne 50 mcg tablet 12-09 00:00: 00 Yes 50ug Take [address] [facility] amlodipine 5 mg tablet TAKE 1 TABLET BY MOUTH EVERY DAY amlodipine 5 mg tablet TAKE 1 TABLET BY MOUTH EVERY DAY No amlodipine 5 mg tablet TAKE 1 TABLET BY MOUTH EVERY DAY [facility] escitalopra m 10 mg tablet TAKE 1 TABLET BY MOUTH DAILY escitalopra m 10 mg tablet TAKE 1 TABLET BY MOUTH DAILY No escitalopr am 10 mg tablet TAKE 1 TABLET BY MOUTH DAILY [facility] estradiol 0.01% (0.1 mg/gram) vaginal cream (0.5 gm) as directed with applicator; three times a week; 30 days estradiol 0.01% (0.1 mg/gram) vaginal cream (0.5 gm) as directed with applicator; three times a week; 30 days No estradiol 0.01% (0.1 mg/gram) vaginal cream (0.5 gm) as directed with applicator ; three times a week; 30 days [facility] levothyroxi ne 75 mcg tablet TAKE 1 TABLET BY MOUTH DAILY IN THE MORNING ON AN EMPTY STOMACH levothyroxi ne 75 mcg tablet TAKE 1 TABLET BY MOUTH DAILY IN THE MORNING ON AN EMPTY STOMACH No levothyrox ine 75 mcg tablet TAKE 1 TABLET BY MOUTH DAILY IN THE MORNING ON AN EMPTY STOMACH [facility] losartan 100 mg tablet TAKE 1 TABLET BY MOUTH DAILY losartan 100 mg tablet TAKE 1 TABLET BY MOUTH DAILY No losartan 100 mg tablet TAKE 1 TABLET BY MOUTH DAILY [facility] lovastatin 40 mg tablet TAKE 1 TABLET BY MOUTH EVERY DAY lovastatin 40 mg tablet TAKE 1 TABLET BY MOUTH EVERY DAY No lovastatin 40 mg tablet TAKE 1 TABLET BY MOUTH EVERY DAY [facility] metoprolol succinate ER 50 mg tablet,exte nded release 24 hr TAKE 1 TABLET BY MOUTH EVERY DAY metoprolol succinate ER 50 mg tablet,exte nded release 24 hr TAKE 1 TABLET BY MOUTH EVERY DAY No metoprolol succinate ER 50 mg tablet,ext ended release 24 hr TAKE 1 TABLET BY MOUTH EVERY DAY [facility] Osphena 60 mg tablet TAKE 1 TABLET BY MOUTH EVERY DAY WITH FOOD Osphena 60 mg tablet TAKE 1 TABLET BY MOUTH EVERY DAY WITH FOOD No Osphena 60 mg tablet TAKE 1 TABLET BY MOUTH EVERY DAY WITH FOOD [facility] Vital Signs Vital Name Observation Time Observation Value Comments Summer cavazos BMI (Body Mass Index) 2023-10-20 00:00:00 28 kg/m2 [facility] Body Weight 2023-10-20 00:00:00 173.4 [lb_av] [facility] BP Diastolic 2023-10-20 00:00:00 77 mm[Hg] [facility] BP Systolic 2023-10-20 00:00:00 132 mm[Hg] [facility] Height 2023-10-20 00:00:00 66 [in_i] [facility] Systolic blood pressure 2019-05-17 18:07:00 129 mm[Hg] [facility] Diastolic blood pressure 2019-05-17 18:07:00 81 mm[Hg] [facility] Body height 2019-05-17 18:07:00 170.2 cm [facility] Body weight 2019-05-17 18:07:00 65.318 kg [facility] BMI 2019-05-17 18:07:00 22.55 kg/m2 [facility] Systolic blood pressure 2019-04-12 16:02:00 132 mm[Hg] [facility] Diastolic blood pressure 2019-04-12 16:02:00 77 mm[Hg] [facility] Body height 2019-04-12 16:02:00 170.2 cm [facility] Body weight 2019-04-12 16:02:00 65.318 kg [facility] BMI 2019-04-12 16:02:00 22.55 kg/m2 [facility] Systolic blood pressure 2019-03-30 14:25:00 127 mm[Hg] [facility] Diastolic blood pressure 2019-03-30 14:25:00 73 mm[Hg] [facility] Heart rate 2019-03-30 14:25:00 61 /min [facility] acute hospital Respiratory rate 2019-03-30 14:25:00 18 /min [facility] Body height 2019-03-30 14:25:00 170.2 cm [facility] Body weight 2019-03-30 14:25:00 65.318 kg [facility] BMI 2019-03-30 14:25:00 22.55 kg/m2 [facility] Procedures Procedure Date / Time Performed Performing Clinician Source MAMMO, screening, digital, bilateral 2023-10-20 00:00:00 [facility] Hysterectomy 2022-09-29 00:00:00 Skyler edical US RETROPERITONEAL COMPLETE 2022-03-31 21:12:10 Requisition, Paper [facility] ASSIGNMENT OF BENEFITS 2022-03-25 19:29:45 Tabitha gray Unassigned, [place] [facility] Hysteroscopy with Biopsy 2021-05-21 00:00:00 [facility] BI SCREENING TOMOSYNTHESIS BILATERAL 2021-03-05 18:43:13 Requisition, Paper [facility] CONSENT/REFUSAL FOR DIAGNOSIS AND TREATMENT 2021-03-05 18:11:20 Doctor Unassigned, [place] [facility] ASSIGNMENT OF BENEFITS 2021-03-05 18:11:01 Doctez r Unassigned, [place] [facility] US PELVIS COMPLETE WITH TRANSVAGINAL 2020-03-01 20:17:49 Requisition, Paper [facility] BI SCREENING TOMOSYNTHESIS BILATERAL 2020-03-01 19:40:00 Requisition, Paper [facility] NOTICE OF PRIVACY PRACTICES 2020-03-01 19:00:07 Doctor Unassigned, [place] [facility] CONSENT/REFUSAL FOR DIAGNOSIS AND TREATMENT 2020-03-01 18:59:42 Doctor Unassigned, [place] [facility] ASSIGNMENT OF BENEFITS 2020-03-01 18:59:22 Doctez r Unassigned, [place] [facility] ASSIGNMENT OF BENEFITS 2019-05-17 19:09:23 Tabitha gray Unassigned, [place] [facility] REFERRAL- REQUEST/RESPONSE 2019-03-22 05:01:00 Bernabe cota Unassigned, [place] [facility] NON WIMB FACILITY DOCUMENTATION 2019-03-15 05:01:00 Doctor Unassigned, [place] [facility] Plan of Care Planned Activity Planned Date Details Comments Source Diagnostic Test Pending 2023-10-20 00:00:00 urinalysis, dipstick [code = urinalysis, dipstick] [facility] Diagnostic Test Pending 2023-10-20 00:00:00 noninvasive colorectal cancer DNA + occult blood screening, QL, stool [code = noninvasive colorectal cancer DNA + occult blood screening, QL, stool] [facility] Future Appointment 2024-10-25 13:00:00 Chloe Tristan, Raul [address]; [address], [place] [address] [facility] Encounters Start Date/Time End Date/Time Encounter Type Admission Type Attending [facility] Care Department Encounter ID Source 2022-07-09 14:39:03 Outpatient ANGLE BARTHOLOMEW [facility] [id number] 2023-10-20 00:00:00 2023-10-20 00:00:00 Outpatient GC_GCBZW_Ka diyala_S PRIV PRIV [id number] [facility] 2023-10-20 00:00:00 2023-10-20 00:00:00 PRIYANKA Leyva: Raul Wheeler, [address], [place] [address] , Ph. [facility] GC_GCBZW_[facility]* [id number] [facility] 2023-08-18 00:00:00 2023-08-18 00:00:00 Outpatient GC_GCBZW_Ka diyala_S PRIV PRIV [id number] [facility] 2023-07-28 00:00:00 2023-07-28 00:00:00 Outpatient GC_GCBZW_Ka diyala_S PRIV PRIV [id number] [facility] 2023-07-21 00:00:00 2023-07-21 00:00:00 Outpatient GC_GCBZW_Ka diyala_S PRIV PRIV [id number] [facility] 2023-06-30 00:00:00 2023-06-30 00:00:00 Outpatient GC_GCBZW_Ka diyala_S PRIV PRIV [id number] [facility] 2023-03-08 15:26:00 2023-03-08 15:26:00 Outpatient MEY GUAMAN [facility] [id number] [facility] 2022-03-31 15:35:58 2022-03-31 23:59:00 Outpatient R YADIRA BARTHOLOMEW [facility] [id number] [facility] 2022-03-31 15:30:00 2022-03-31 23:59:00 Hospital Encounter [place] [facility] 1.2.840.114 350.1.13.10 [id number] [facility] 2022-03-25 14:36:45 2022-03-25 23:59:00 Outpatient R [place] YADIRA [facility] [id number] [facility] 2022-03-25 14:36:45 2022-03-25 23:59:00 Hospital Encounter [facility] [id number] 350.1.13.10 4.2.7.2.[id number] [facility] 2022-03-25 00:00:00 2022-03-25 00:00:00 Orders Only Doctor Unassigned, [place] [facility] 1.2.840.114 350.1.13.10 4.2.7.2.[id number] [facility] 2021-08-15 05:58:00 2021-08-15 09:55:00 Outpatient Elective Mey Hong [facility] [id number] [facility] 2021-08-15 05:58:00 2021-08-15 05:58:00 Outpatient [facility] [id number] [facility] 2021-03-05 13:20:00 2021-03-05 23:59:00 Hospital Encounter [facility] 1.2.840.114 350.1.13.10 4.2.7.2.[id number] [facility] 2021-03-05 00:00:00 2021-03-05 00:00:00 Outpatient YADIRA FARIA [facility] [id number] [facility] 2020-11-19 00:00:00 2020-11-19 00:00:00 Patient Outreach Cornell Zavala [facility] 1.2.840.114 350.1.13.10 4.2.7.2.[id number] [facility] 2020-03-01 13:57:00 2020-03-01 13:57:00 Hospital Encounter [facility] 1.2.840.114 350.1.13.10 4.2.7.2.[id number] [facility] 2020-03-01 13:57:00 2020-03-01 13:57:00 [facility] 1.2.840.114 350.1.13.10 4.2.7.2.[id number] [facility] 2020-03-01 00:00:00 2020-03-01 00:00:00 Outpatient YADIRA FARIA [facility] [id number] [facility] 2019-05-17 14:08:36 2019-05-17 14:23:36 Test And Turn Up Technician Visit 1, [facility] Donnell Stewart [facility] 1.2.840.114 350.1.13.10 4.2.7.2.[id number] [facility] 2019-05-17 12:59:35 2019-05-17 13:27:01 Office Visit Donnell Stewart [facility] 1.2.840.114 350.1.13.10 4.2.7.2.[id number] [facility] 2019-05-17 00:00:00 2019-05-17 00:00:00 Orders Only Doctor Unassigned, [place] [facility] 1.2.840.114 350.1.13.10 4.2.7.2.[id number] [facility] 2019-04-12 11:01:36 2019-04-12 11:25:40 Office Visit Jeremy Queen [facility] 1.2.840.114 350.1.13.10 4.2.7.2.[id number] [facility] 2019-03-30 09:23:17 2019-03-30 09:49:28 Office Visit Donnell Stewart [facility] Surgical [facility] 1.2.840.114 350.1.13.10 4.2.7.2.[id number] [facility] 2019-03-22 00:00:00 2019-03-22 00:00:00 Orders Only Doctor Unassigned, [place] [facility] 1.2.840.114 350.1.13.10 4.2.7.2.[id number] [facility] 2019-03-22 00:00:00 2019-03-22 00:00:00 Refill Donnell Stewart [facility] Surgical [facility] 1.2.840.114 350.1.13.10 4.2.7.2.[id number] [facility] 2019-03-15 09:38:11 2019-03-15 23:59:00 Hospital Encounter Donnell Stewart [facility] 1.2.840.114 350.1.13.10 4.2.7.2.[id number] [facility] 2019-03-15 00:00:00 2019-03-15 00:00:00 Orders Only Doctor Unassigned, [place] [facility] 1.2.840.114 350.1.13.10 4.2.7.2.[id number] [facility] Results Test Description Test Time Test Comments Results Result Co mments Source [facility] Thromboplastin [id number] 06:47:00* Test Item Value Reference Range Interpretation Comme nts Partial Thromboplastin Time (test code = PTT) 25.8 Seconds 23.9-32.8 N *Note New Reference Range Complete Blood Count w/o [id number] 06:47:00* Test Item Value Reference Range Interpretation Comme nts White Blood Count (test code = WBCT) 6.7 x10 3/uL 4.4-10.5 N Red Blood Count (test code = RBC) 4.41 x10 6/uL 3.75-5.20 N Hemoglobin (test code = HGBT) 12.8 g/dL 12.2-14.8 N Hematocrit (test code = HCTT) 40.0 % 36.5-44.4 N Mean Corpuscular Volume (louann t code = MCV) 90.70 fL 80.00-100.00 N Mean Corpuscular Hemoglobin (test code = MCH) 29.0 pg 27.0-32.5 N Mean Corpuscular HGB Conc (test code = MCHC) 32.00 g/dL 32.00-37.50 N RDW Coefficient of Variation (test code = RDWCV) 13.7 % 11.5-14.5 N Platelet Count (test code = PLTT) 232.0 x10 3/uL 140.0-440.0 N Mean Platelet Volume (test code = MPV) 10.4 fL nRBC Abs (test code = NRBCA) 0 nRBC Pct (test code = NRBCP) 0 % Comprehensive Metabolic [id number] 06:47:00* Test Item Value Reference Range Interpretation Comme nts SODIUM (test code = NA) 144.0 mmol/L 136.0-145.0 N Potassium,K (test code = K) 3.7 mmol/L 3.0-5.1 N Chloride (test code = CL) 107 mmol/L 98-107 N Carbon Dioxide (test code = CO2) 28 mmol/L 20-31 N Anion Gap (test code = GAP) 9 mmol/L 5-15 N Blood Urea Nitrogen (test co de = BUN) 16 mg/dL 9-23 N Creatinine (test code = CREATT) 1.06 mg/dL 0.55-1.02 H Creatinine Clr Calc Pharmacy (test code = CRCLPHA) 53.38 mL/min Estimated GFR ( Ameri ca (test code = EGFRAA) > 60 mL/min/1.73m2 Estimated GFR (Non Afr Ameri ca (test code = EGFRNAA) 55 mL/min/1.73m2 BUN/Creatinine Ratio (test c ode = BCRATIO) 15 ratio 10-20 N Glucose (test code = GLU) 107 mg/dL 74-106 H Osmolality,Calculated (test code = OSMOC) 298.7 Calcium (test code = CA) 9.2 mg/dL 8.3-10.6 N Bilirubin,Total (test code = BILIT) 0.4 mg/dL 0.2-1.1 N Aspartate Amino Transferase (test code = AST) 27 U/L 0-34 N Alanine Aminotransferase (te st code = ALT) 18 U/L 10-49 N Total Protein (test code = TP) 7.4 g/dL 5.7-8.2 N Albumin Level (test code = ALB) 4.6 g/dL 3.2-4.8 N Globulin (test code = GLOB) 2.8 mg/dL 2.3-3.5 N Albumin/Globulin Ratio (test code = AGRATIO) 1.6 ratio 0.8-2.0 N Alkaline Phosphatase (test c ode = ALP) 102 U/L 46-116 N Lipid [id number] 06:47:00* Test Item Value Reference Range Interpretation Comme nts Triglycerides (test code = TRIG) 125 mg/dL 9-200 N Cholesterol (test code = CHOL) 185 mg/dL 0-200 N LDL Cholesterol,Calculated (test code = LDLC) 90 mg/dL 0-130 N LDL (mg/dL)Op timal <100Near Optimal 100-129Borderline High 130-159High 160-189Very High >=190 VLDL CHOLESTEROL (test code = VLDL) 25 mg/dL HDL Cholesterol (test code = HDL) 70 mg/dL 50-60 H LDL/HDL Ratio (test code = LDLHDL) 1 Chol/HDL Ratio (test code = CHLHDL) 2.6 ratio 0.0-4.4 N Prothrombin Time [id number] 06:47:00* Test Item Value Reference Range Interpretation Comme nts Prothrombin Time (test code = PT) 10.8 Seconds 9.3-12.1 N *Note New Refer ence Range INR (test code = INR) 1.0 ratio 0.9-1.2 N Reference Interv al is for non-anticoagulated patients.Suggested INR Therapeutic Range for Vitamin K antogonisttherapy:LEV ELS OFTHERAPY INDICATIONS TARGET INR RANGEStandard Dose Venous Thrombosis, 2.0 - 3.0 Atrial Fibrillation, Pulmonary Embolism.High Dose Valvular Heart Disease, 2.5 - 3.5 Mechanical Heart, Intracardiac Thrombosis.*Note New Reference Range BI SCREENING TOMOSYNTHESIS [id number] 22:41:28Examination:BI SCREENING TOMOSYNTHESIS BILATERAL History:Patient is 65 year old and is seen for: ?En counter for screening mammogram for breast cancer. Computer-aided detection (CAD) utilized. Comparisons: 03/01/2020 BI SCREENING TOMOSYNTHESIS BILATERAL, 12/21/2018 BI SCREENING TOMOSYNTHESIS BILATERAL, and 12/15/2017 BI SCREENING TOMOSYNTHESIS BILATERAL Findings:The breasts have scattered areas of fibroglandular density. There is no evidence of suspicious masses, calcifications, or other abnormal findings. Impression:No mammographic evidence of malignancy. Recommendation:Annual mammographic follow-up BI-RADS Category: [facility] COMPLETE WITH [id number] 23:24:191. ?Minimal nonuniformity of the endometrium where it [...] the pelviswas performed including color Doppler evaluation. Bar Welder imageswere obtained for the record. COMPARISON: None FINDINGS: Uterus: Retroverted, retroflexedSize: 7.4 x 2.9 x 4.3 cmMyometrium: HomogenousMasses: None.Cervix: UnremarkableEndometrial thickness: 0.1Endometrium: Minimal nonuniformity of the endometrium. The endometriummeasures approximately 1 mm in thickness in most locations but in a couplesmall areasis expanded up to about 2.5 mm in [...] the pelviswas performed including color Doppler evaluation. Bar Welder imageswere obtained for the record.COMPARISON: NoneFINDINGS:Uterus: Retroverted, [...] free fluid. IMPRESSION1. Minimal nonuniformity of the endometrium where it is focally expandedto up to 2.5 mm in thickness, remainder being 1mm in thickness.Nonspecific and could relate to presence of small amount of fluid or tinypolyps. May be correlated with patient symptoms. Follow-up imaging may beobtained as clinically indicated.2. Unremarkable bilateral ovaries.Preliminary Report Dictated by Resident: Dianne Tyson MD., have reviewed this study and agree with the abovereport.[facility] [id number] 21:37:40Examination:BI SCREENING TOMOSYNTHESIS BILATERAL History:Patient is 64 year old and is seen for: ?Screening mammogram. Computer-aided detection (CAD) utilized. Comparisons: 12/21/2018 BI SCREENING TOMOSYNTHESIS BILATERAL and 12/15/2017 BI SCREENING TOMOSYNTHESIS BILATERAL Findings:The breasts have scattered areas of fibroglandular density. There is no evidence of suspicious masses, calcifications, or other abnormal findings. Impression:No mammographic evidence of malignancy. Recommendation:Annual mammographic follow-up BI-RADS Category: Both [facility]
[2024-02-17] MEDS ORDERED: HYDROCODONE/APAP 5/325 MG TAB ONE (00:32)
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
[2024-02-17 01:35] VITALS: BP 131/73; TEMP 97.4; O2SAT 100
--- NOTE | 2024-02-17 11:58 | RAD REPORT ---
EXAM DESCRIPTION: RAD - Tib Fib Left - 02/17/2024 12:58 am XR TIBIA FIBULA LEFT CLINICAL HISTORY: 68 years Female PAIN TECHNIQUE: Two x-ray views of the left tibia and fibula were performed on 02/17/2024 at 12:43 AM. COMPARISON: None FINDINGS: There is no evidence of fracture or dislocation. There are mild degenerative changes of th e left knee and left ankle. No focal lytic or sclerotic bone lesions are seen. Bone mineralization is normal. No focal soft tissue abnormalities are identified. IMPRESSION: No evidence of acute osseous injury. There are mild degenerative changes of the left kne e and left ankle. Electronically signed by: Asha Connor DO 02/17/2024 01:07 AM CDT RP Due to temporary technical issues with the PACS/Fluency reporting system, reports are being signed by the in house radiologist without review as a courtesy to ensure prompt reporting. The interpreting r adiologist is fully responsible for the content of the report.
== END 2024-02-17 01:14 | disposition home or self-care (01) ==
LOC: ER 23:56
DX: S80.12XA Contusion of left lower leg, initial encounter (principal); S80.11XA Contusion of right lower leg, initial encounter
CPT/HCPCS: 99283